=== PATIENT | male | born 1990 | race Caucasian/White ===

== ENCOUNTER 2018-03-29 08:21 | Emergency (ER) | payer SELFPAY ==
[~2018-03-29] VITALS: Ht 177.8 cm; Wt 100.0 kg
[2018-03-29 11:09] VITALS: BP 115/73
== END 2018-03-29 16:27 | disposition left against medical advice (07) ==
LOC: ER 08:21
DX: Z53.21 Procedure and treatment not carried out due to patient leaving prior to being seen by health care provider (principal)